=== PATIENT | female | born 1960 | race Caucasian/White ===

== ENCOUNTER 2020-05-18 20:44 | Emergency (ER) | payer OTHER ==
[~2020-05-18] VITALS: Ht 160 cm; Wt 79.0 kg
[~2020-05-18 20:44] MED LIST: ASCO100019 PO; ATOR20TA37 PO; BETA1POW PO; BUPR150T73 PO; CEPH-368 PO; CITA40TA12 PO; CITA40TA5 PO; GENI30TA PO; IBUP-1902 PO; LEVO50TA5 PO; MULT-717 PO; OMEP-110 PO; ONDA4TAB7 PO; OXYC-306 PO; QUER1POW PO; Tumeric PO; [UNRECOGNIZED DRUG - OTHER] PO; [UNRECOGNIZED DRUG - OTHER] PO; [UNRECOGNIZED DRUG - OTHER] PO
--- NOTE | 2020-05-18 21:06 | NUR ---
First contact with pt sitting up in gown on gurney, moderate distress secondary to pain. Pt present ANOx4 and reports collarbone pain secondary to fall from ladder, denies LOC, SOB, midline neck or back pain. On exam no obvious deformity noted, no increased work of breathing, distal CMS intact. at , [facility].
--- NOTE | 2020-05-18 21:28 | NUR ---
pt to xray via gurmargarette, no changed in condition
[2020-05-18] MEDS ORDERED: HYDROcodone/APAP 5/325 TABLET PO ONE (21:30)
[2020-05-18] MEDS ORDERED: HYDROcodone/APAP 5/325 TABLET ONE (22:04)
[2020-05-18 22:34] VITALS: BP 145/72
--- NOTE | 2020-05-18 22:36 | NUR ---
Patient/spouse given discharge instructions and they have confirmed that they understand the instructions. Patient ambulatory with steady gait. NAD, P/W/D, denies additional questions. no belongings left behind at time of dc.
== END 2020-05-18 22:37 ==
LOC: ED 22:31
DX: S42.022A Displaced fracture of shaft of left clavicle, initial encounter for closed fracture (principal); I10 Essential (primary) hypertension; W11.XXXA Fall on and from ladder, initial encounter; Y93.89 Activity, other specified; Y92.89 Other specified places as the place of occurrence of the external cause; Y99.8 Other external cause status
CPT/HCPCS: 99283